=== PATIENT | female | born 1955 | race African-American/Black ===

== ENCOUNTER 2025-04-12 21:16 | Emergency (ER) | payer MEDICAID ==
[~2025-04-12] VITALS: Ht 160 cm; Wt 72.0 kg
[~2025-04-12 21:16] MED LIST: ALBU18HF2 IH; FLUT1DIS6 INH; P20 MT
[2025-04-12 21:43] VITALS: TEMP 36.8
[2025-04-12 22:39] LABS: BASOPHILS % 0.6 % (0.0-2.0); EOSINOPHILS % 3.6 % (0.0-5.0); HEMATOCRIT. 40.6 % (36.0-48.0); HEMOGLOBIN. 13.4 g/dL (12.0-16.0); LYMPHOCYTES % 27.2 % (20.0-50.0); MEAN CORPUSCULAR HEMOGLOBIN 30.9 pg (28.0-32.0); MEAN CORPUSCULAR VOLUME 93.5 fL (81.0-99.0); MEAN PLATELET VOLUME 7.4 fl (7.4-10.4); MONOCYTES % 9.5 % (2.0-8.0); NEUTROPHILS % 59.1 % (40.0-76.0); PLATELET 278 x1000/uL (130-400); RED BLOOD CELL COUNT 4.34 mill/uL (4.2-5.4); RED CELL DISTRIBUTION WIDTH 15.5 % (11.6-14.6); WHITE BLOOD COUNT 7.9 x1000/uL (4.5-11.0)
[2025-04-12 22:52] LABS: CHLORIDE 107 mEq/L (98-107); POTASSIUM 4.7 mEq/L (3.5-5.1); SODIUM 141 mEq/L (136-145)
[2025-04-12 22:53] LABS: CALCIUM 9.3 mg/dL (8.7-10.4); CARBON DIOXIDE 28 mEq/L (21-32)
[2025-04-12 22:58] LABS: CREATININE 0.8 mg/dL (0.6-1.0); GLUCOSE 104 mg/dL (70-105); UREA NITROGEN BLOOD 10 mg/dL (9-23)
[2025-04-12 22:59] LABS: TROPONIN I HIGH SENSITIVITY 4 ng/L (3.0-34)
[2025-04-12] MEDS: PREDNISONE 20MG TABLET PO STA (23:06)
[2025-04-12] MEDS: IPRATROPIUM BROMIDE (0.02%) 0.5MG/2.5ML NEB HHN STA (23:16)
[2025-04-12] MEDS: ALBUTEROL (0.083%) 2.5MG/3ML NEB HHN STA (23:17)
[2025-04-12 23:18] VITALS: PULSE 89; RESP 24; O2SAT 100
[2025-04-13] MEDS ORDERED: P50 MT (00:25)
[2025-04-13] MEDS ORDERED: AZIT250T12 MT (00:25)
[2025-04-13 00:37] VITALS: BP 146/70; PULSE 89; RESP 14; O2SAT 95
[2025-04-15] MEDS ORDERED: AZIT250T12 MT (08:36)
[2025-04-15] MEDS ORDERED: P20 MT (08:36)
== END 2025-04-13 00:37 | disposition home or self-care (01) ==
LOC: ER 21:16
DX: J44.1 Chronic obstructive pulmonary disease with (acute) exacerbation (principal); F17.200 Nicotine dependence, unspecified, uncomplicated; I10 Essential (primary) hypertension; Z79.899 Other long term (current) drug therapy
CPT/HCPCS: 80048; 83880; 85025; 84484; 36415; 71045; 94640; 93005; 99285; J7512; Z7610 ×2